=== PATIENT | female | born 1940 | race Caucasian/White ===

== ENCOUNTER 2019-03-10 12:49 | Emergency (ER) | payer MEDICARE, BC ==
[2019-03-10] MEDS ORDERED: Sodium Chloride 0.9% 10 ML Syringe FLUSH PRN (13:03)
[2019-03-10 13:30] VITALS: BP 175/79
--- NOTE | 2019-03-10 13:57 | EDM.PDOC ---
ED HPI GENERAL MEDICAL PROBLEM - General Chief Complaint: General Stated Complaint: CHEST PAIN Time Seen by Provider: 03/10/19 13:30 Source of Information: Reports: Patient History Limitations: Reports: No Limitations - History of Present Illness INITIAL COMMENTS - FREE TEXT/NARRATIVE: Alert pleasant 79-year-old female presents to the ER for chest pressure and chest pain which was substernal. Patient states she was in her normal state of health and perform normal activities this morning without difficulty. The last 3 days she's been golfing and guarding without any chest pain with exertion. Today her and her ran some errands. The patient was at a [employer] bending and twisting to look for cards for various family members. Patient And noticed she was feeling slightly lightheaded, nauseous sweaty and noted some substernal chest discomfort a "just didn't feel well". Patient walked out to the car and sat in her vehicle. Her who was bleeding her in the car was concerned that her symptoms may be cardiac in nature therefore gave her 1 nitroglycerin tablet. Patient noted that while sitting in the car symptoms had artery started to improve she is unsure if the nitroglycerin changed her symptom course. Nitroglycerin did not make her symptoms worse. She did not get a headache with the nitroglycerin that was hesitant placed under her tongue. Patient has no personal significant cardiac history but also has not had a significant workup. Her has had significant cardiac events including multiple bypass surgeries. Her was very concerned regarding her symptoms may be cardiac therefore presented to the ER for evaluation. Onset: Today, Sudden - Related Data Allergies Allergy/AdvReac Type Severity Reaction Status Date / Time No Known Allergies Allergy Verified 04/07/15 15:33 Home Meds: Home Meds Diazepam [Valium] 5 mg PO BID PRN 04/07/15 [History] Hydrochlorothiazide 25 mg PO DAILY 04/07/15 [History] Loperamide [Imodium] 1 - 2 cap PO ASDIRECTED PRN 04/07/15 [History] Warfarin Sodium 2.5 - 5 mg PO ASDIRECTED 04/07/15 [History] Past Medical History Other HEENT History: wears glasses, deaf left ear, ragweed environmental allergies Cardiovascular History: Reports: None Other Gastrointestinal History: gastroenteritis Other [employer] History: fibrod removal Other Neuro History: meniere's disease - Infectious Disease History Infectious Disease History: Reports: Chicken Pox, Measles, Mumps Social & Family History - Tobacco Use Smoking Status *Q: Never Smoker - Caffeine Use Caffeine Use: Reports: Coffee - Recreational Drug Use Recreational Drug Use: No ED ROS GENERAL - Review of Systems Review Of Systems: ROS reveals no pertinent complaints other than HPI. ED EXAM, GENERAL - Physical Exam Exam: See Below Exam Limited By: No Limitations General Appearance: Alert, WD/WN, No Apparent Distress Ears: Normal External Exam, Hearing Grossly Normal Ear Exam: Bilateral Ear: Auricle Normal, Canal Normal, TM normal Nose: Normal Inspection, No Blood Throat/Mouth: Normal Inspection, Normal Lips, Normal Voice, No Airway Compromise Head: Atraumatic, Normocephalic Neck: Normal Inspection, Supple, Non-Tender, Full Range of Motion Respiratory/Chest: No Respiratory Distress, Lungs Clear, Normal Breath Sounds, No Accessory Muscle Use, Chest Non-Tender Cardiovascular: Normal Peripheral Pulses, Regular Rate, Rhythm, No Edema, No Gallop, No JVD, No Murmur, No Rub GI/Abdominal: Normal Bowel Sounds, Soft, Non-Tender, No Organomegaly, No Distention, No Abnormal Bruit, No Mass, Splenomegaly (Female) Exam: Deferred Back Exam: Normal Inspection, Full Range of Motion, NT Extremities: Normal Inspection Neurological: Alert, Oriented, CN II-XII Intact, Normal Cognition, Normal Gait, Normal Reflexes, No Motor/Sensory Deficits Psychiatric: Normal Affect, Normal Mood Skin Exam: Warm, Dry, Intact, Normal Color, No Rash Lymphatic: No Adenopathy EKG INTERPRETATION EKG Date: 03/10/19 Time: 13:56 Rhythm: NSR Rate (Beats/Min): 62 Oxly: Normal P-Wave: Present QRS: Normal ST-T: Normal QT: Normal CT/PQ Interval: Increased 212, First Degree Block Comparison: NA - No Prior EKG Course - Vital Signs Last Recorded V/S: Last Vital Signs Temp 36.1 C 03/10/19 13:26 Pulse 69 03/10/19 13:26 Resp 12 03/10/19 13:26 BP 175/79 H 03/10/19 13:26 Pulse Ox 97 03/10/19 13:26 - Orders/Labs/Meds Orders: Active Orders 24 hr Category Date Time Status EKG Documentation Completion [RC] ASDIRECTED Care 03/10/19 13:04 Active Peripheral IV Care [RC] . DIRECTED Care 03/10/19 13:04 Active Blood Pressure [OM.PC] Routine Oth 03/10/19 14:24 Ordered Peripheral IV Insertion Adult [OM.PC] Urgent Oth 03/10/19 13:03 Ordered EKG 12 Lead [EK] Routine Ther 03/10/19 13:03 Ordered Labs: Laboratory Tests 03/10/19 03/10/19 03/10/19 Range/Units 13:15 13:15 13:25 WBC 6.5 (4.5-11.0) K/uL RBC 4.99 (3.30-5.50) M/uL Hgb 14.1 (12.0-15.0) g/dL Hct 43.7 (36.0-48.0) % MCV 88 (80-98) fL MCH 28 (27-31) pg MCHC 32 (32-36) % Plt Count 293 (150-400) K/uL Neut % (Auto) 63 (36-66) % Lymph % (Auto) 24 (24-44) % [place] % (Auto) 9 H (2-6) % Eos % (Auto) 2 (2-4) % Baso % (Auto) 1 (0-1) % PT 27.4 H (9.5-12.0) sec INR 2.63 H (0.80-1.20) Sodium 140 (140-148) mmol/L Potassium 3.8 (3.6-5.2) mmol/L Chloride 102 (100-108) mmol/L Carbon Dioxide 29 (21-32) mmol/L Anion Gap 8.6 (5.0-14.0) mmol/L BUN 24 H (7-18) mg/dL Creatinine 0.8 (0.6-1.0) mg/dL Est Cr Clr Drug Dosing 49.24 mL/min Estimated GFR (MDRD) > 60 (>60) Glucose 109 H (74-106) mg/dL Calcium 9.6 (8.5-10.1) mg/dL Total Bilirubin 0.3 (0.2-1.0) mg/dL AST 21 (15-37) U/L ALT 25 (12-78) U/L Alkaline Phosphatase 75 (46-116) U/L Troponin I < 0.017 (0.000-0.056) ng/mL Total Protein 7.0 (6.4-8.2) g/dL Albumin 3.7 (3.4-5.0) g/dL Globulin 3.3 (2.3-3.5) g/dL Albumin/Globulin Ratio 1.1 L (1.2-2.2) Meds: Medications Discontinued Medications Generic Name Dose Route Start Last Admin Trade Name Freq PRN Reason Stop Dose Admin Sodium Chloride 10 ml 03/10/19 13:03 Saline Flush FLUSH ASDIRECTED PRN Keep Vein Open - Radiology Interpretation Free Text/Narrative:: CXR PA/LAT: Interstitial lung disease noted. Right midlung field perihilar changes observed. No previous EKG available for comparison. Would recommend repeat chest x-ray 3-6 months to ensure stability or comparison to previous chest x-ray or CT of the chest to ensure no acute changes. Follow- up with primary care provider recommended for risk factors. - Re-Assessments/Exams Free Text/Narrative Re-Assessment/Exam: Alert pleasant 79-year-old female presents with acute onset of epigastric chest discomfort, chest pressure, nausea and diaphoresis. Patient has no significant cardiac history per se. Patient has a significant history of Mnire's and benign positional vertigo patient did not have any dizziness with this episode. Patient has a history of a hiatal hernia and reflux problems. Her gave her one dose of his nitroglycerin she did not necessarily improve or worsen her symptoms. Patient has a history of hypertension Mnire she takes her hydrochlorothiazide in the morning. Patient states she has a history of pulmonary embolism but her symptoms at that point in time are much different than her current symptoms today. Patient did not have any significant chest pressure or decrease in exercise tolerance over the last 2-3 days. Heart score: Symptoms are moderately suspicious: 1. EKG nonspecific repolarization disturbances: 1. Age of the patient greater than 65 2. Risk factors 1-2 which are hypertension and obesity: 1. Troponin normal: 0. Patient has a heart score of 5 moderate risk for major adverse cardiac event 12- 16%. Shared decision-making completed with the patient and : Patient's symptoms were much improved before nitroglycerin was given. Patient does not want to stay in the hospital for further cardiac workup at this point in time. I would recommend follow-up with primary care provider and discuss risk factors regarding adverse coronary event in the next 1-2 weeks. Return to the ER if symptoms are worsening or new concerns. Recommend follow-up with primary care regarding subtle EKG changes indicating first degree block and chest x-ray findings with interstitial lung disease with increased density in the right perihilar region. 03/10/19 14:15 Departure - Departure Time of Disposition: 14:35 Disposition: Home, Self-Care 01 Clinical Impression: Chest pain in adult, Costochondral chest pain - Discharge Information Instructions: Nonspecific Chest Pain, Cardiac-Specific Troponin I and T Test, Chest Wall Pain, Costochondritis Referrals: Abhay Hannah MD [Primary Care Provider] - Forms: ED Department Discharge Additional Instructions: Heart score: Symptoms are moderately suspicious: 1. EKG nonspecific repolarization disturbances: 1. Age of the patient greater than 65 2. Risk factors 1-2 which are hypertension and obesity: 1. Troponin normal: 0. Patient has a heart score of 5 moderate risk for major adverse cardiac event 12- 16%. I would recommend follow-up with primary care provider and discuss risk factors regarding adverse coronary event in the next 1-2 weeks. Return to the ER if symptoms are worsening or new concerns. Recommend follow-up with primary care regarding subtle EKG changes indicating first degree block and chest x-ray findings with interstitial lung disease with increased density in the right perihilar region. - Problem List & Annotations (1) Chest pain in adult SNOMED Code(s): 52391881 Code(s): R07.9 - CHEST PAIN, UNSPECIFIED Status: Acute (2) Costochondral chest pain SNOMED Code(s): 141642633, 803951398 Code(s): R07.1 - CHEST PAIN ON BREATHING Status: Acute - Problem List Review Problem List Initiated/Reviewed/Updated: Yes - My Orders Last 24 Hours: My Active Orders 03/10/19 13:03 Peripheral IV Insertion Adult [OM.PC] Urgent EKG 12 Lead [EK] Routine 03/10/19 13:04 EKG Documentation Completion [RC] ASDIRECTED Peripheral IV Care [RC] . DIRECTED 03/10/19 14:24 Blood Pressure [OM.PC] Routine - Assessment/Plan Last 24 Hours: My Active Orders 03/10/19 13:03 Peripheral IV Insertion Adult [OM.PC] Urgent EKG 12 Lead [EK] Routine 03/10/19 13:04 EKG Documentation Completion [RC] ASDIRECTED Peripheral IV Care [RC] . DIRECTED 03/10/19 14:24 Blood Pressure [OM.PC] Routine
--- NOTE | 2019-03-10 14:07 | CRLCR ---
INDICATION: Chest pain TECHNIQUE: Chest 2 views. COMPARISON: None FINDINGS: Cardiovascular and mediastinum: Heart size and vasculature are normal in caliber and appearance. Mediastinum is within normal limits. Lungs and pleural spaces: Round density in the right hilum may represent vascular structures. No focal infiltrate. No sign of pleural effusion. No pneumothorax. Bones and soft tissues: Mild dextroscoliosis. Surgical clips in the right upper quadrant. IMPRESSION: No sign of acute disease. Round density in the right hilum may represent normal vascular structures however correlation with prior imaging is recommended. A chest CT would also be useful for further evaluation if clinically indicated. Dictated by Jaimee Ya MD @ Mar 10 2019 2:01PM Signed by Dr. Jaimee Ya @ Mar 10 2019 2:05PM
== END 2019-03-10 14:36 | disposition home or self-care (01) ==
LOC: JP.ED 12:49
DX: R07.1 Chest pain on breathing (principal); Z79.899 Other long term (current) drug therapy
CPT/HCPCS: 36415; 71046; 80053; 84484; 85025; 85610; 93005; 99285-25

== ENCOUNTER 2024-04-14 10:10 | Emergency (ER) | payer MEDICARE, BC, OTHER ==
[2024-04-14 13:27] VITALS: BP 174/56; PULSE 83
== END 2024-04-14 16:10 | disposition home or self-care (01) ==
LOC: JP.ED 10:10
DX: S32.039A Unspecified fracture of third lumbar vertebra, initial encounter for closed fracture (principal); I10 Essential (primary) hypertension; Z90.49 Acquired absence of other specified parts of digestive tract; Z88.8 Allergy status to other drugs, medicaments and biological substances; Z79.899 Other long term (current) drug therapy; V43.51XA Car driver injured in collision with sport utility vehicle in traffic accident, initial encounter
CPT/HCPCS: 70450; 70450-26; 72131; 72131-26; 76377; 99283